=== PATIENT | male | born 1990 | race Asian ===

== ENCOUNTER 2024-02-18 02:03 | Inpatient (IN) | payer MEDICAID, OTHER ==
[~2024-02-18] VITALS: Ht 170.2 cm; Wt 72.1 kg
[2024-02-18 04:53] LABS: BASOPHILS % (AUTO) 1.5 % (0.0-2.0); EOSINOPHILS % (AUTO) 1.7 % (1.0-6.0); HEMATOCRIT 49.5 % (41-53); HEMOGLOBIN 16.4 g/dL (13.5-17.5); LYMPHOCYTES # (AUTO) 2.4 K/uL (1.0-4.8); MEAN CORPUSCULAR HEMOGLOBIN 29.5 pg (26.0-34.0); MEAN CORPUSCULAR HGB CONC 33.2 G/dL (31.0-37.0); MEAN CORPUSCULAR VOLUME 89 fL (80-100); MONOCYTES # (AUTO) 0.8 K/uL (0.1-1.0); NEUTROPHILS # (AUTO) 7.4 K/uL (1.8-7.7); NEUTROPHILS % (AUTO) 67.8 % (40.0-70.0); PLATELET COUNT (AUTO) 324 K/uL (150-450); RED BLOOD CELL COUNT(AUTO) 5.58 MIL/uL (4.50-5.90); RED CELL DISTRIBUTION WIDTH 13.8 % (11.5-14.5); WHITE BLOOD COUNT (AUTO) 10.9 K/uL (4.5-11.0)
[2024-02-18 05:08] LABS: ANION GAP 9 mmol/L (8-16); CARBON DIOXIDE 29 mmol/L (22-29); CHLORIDE 101 mmol/L (98-107); CREATININE 0.87 mg/dL (0.60-1.30); GLOMERULAR FILTR. RATE CALC > 60 mL/min (>60); GLUCOSE,RANDOM 93 mg/dL (70-110); POTASSIUM 3.8 mmol/L (3.5-5.1); SODIUM SERUM 139 mmol/L (136-145); UREA NITROGEN, BLOOD 16 mg/dL (7-18)
[2024-02-18 05:15] LABS: ALCOHOL, BLOOD (SERUM) < 3 mg/dL (0-10)
[2024-02-18 05:52] LABS: PH,URINE DRUG SCREEN 6.5 (5.0-8.0)
[2024-02-18 06:00] LABS: ALCOHOL, URINE DRUG SCREEN NEGATIVE (NEGATIVE); AMPHET/METH SCREEN,URINE POSITIVE (NEGATIVE); BARBITURATE SCREEN, URINE NEGATIVE (NEGATIVE); BENZODIAZEPINES SCREEN,URINE NEGATIVE (NEGATIVE); CANNABINOID SCREEN,URINE NEGATIVE (NEGATIVE); COCAINE SCREEN,URINE NEGATIVE (NEGATIVE); METHADONE SCREEN, URINE NEGATIVE (NEGATIVE); OPIATE SCREEN,URINE NEGATIVE (NEGATIVE); PHENCYCLIDINE SCREEN,URINE NEGATIVE (NEGATIVE)
[2024-02-18 07:53] LABS: COVID AG,FIA SOURCE NASAL SWAB
[2024-02-18 08:20] LABS: SARS-COV2 (COVID) ANTIGEN,FIA Negative (Negative)
[2024-02-18] MEDS ORDERED: ZOLPIDEM TARTRATE 10 MG TABLET PO PRN (09:30)
[2024-02-18] MEDS ORDERED: HALOPERIDOL 5 MG TABLET PO PRN (09:30)
[2024-02-18] MEDS ORDERED: LORazepam 2 MG TABLET PO PRN (09:30)
[2024-02-18 13:03] VITALS: BP 114/76; PULSE 100; RESP 18; TEMP 97.8; O2SAT 97
[2024-02-18] MEDS: RisperiDONE 1 MG TABLET PO SCH (18:06)
[2024-02-18] MEDS ORDERED: CloNIDine HCL 0.1 MG TABLET PO PRN (19:45)
[2024-02-18] MEDS ORDERED: LOPERAMIDE HCL 2 MG CAPSULE PO PRN (19:45)
[2024-02-18] MEDS ORDERED: BENZOCAINE/MENTHOL LOZENGE PO PRN (19:45)
[2024-02-18] MEDS ORDERED: BACITRACIN 28 GM OINTMENT TP PRN (19:45)
[2024-02-18] MEDS ORDERED: ACETAMINOPHEN 325 MG TABLET PO PRN (19:45)
[2024-02-18] MEDS ORDERED: OMEPRAZOLE 20 MG CAPSULE PO PRN (19:45)
[2024-02-18] MEDS ORDERED: MAGNESIUM HYDROXIDE SUSPENSION 30 ML UDCUP PO PRN (19:45)
[2024-02-18] MEDS ORDERED: DOCUSATE SODIUM 100 MG CAPSULE PO PRN (19:45)
[2024-02-18] MEDS ORDERED: MAG HYDROX/ALUMINUM HYD/SIMETH ES 30 ML SUSPENSION UDCUP PO PRN (19:45)
[2024-02-18] MEDS ORDERED: ONDANSETRON 4 MG TABLET PO PRN (19:45)
[2024-02-18] MEDS ORDERED: ALBUTEROL SULFATE HFA 90 MCG/PUFF 8 GM INHALER IH PRN (19:45)
[2024-02-18] MEDS ORDERED: IBUPROFEN 600 MG TABLET PO PRN (19:45)
[2024-02-18] MEDS ORDERED: PETROLATUM,WHITE 28 GM JELLY TP PRN (19:45)
[2024-02-18 20:40] VITALS: BP 110/66; PULSE 85; RESP 19; TEMP 98.3; O2SAT 97
[2024-02-19 11:06] VITALS: BP 132/76; PULSE 69; RESP 19; TEMP 98.6; O2SAT 100
[2024-02-19 21:11] VITALS: BP 121/71; PULSE 100; RESP 16; TEMP 98; O2SAT 98
[2024-02-20 09:12] VITALS: BP 123/79; PULSE 85; RESP 18; TEMP 98.8; O2SAT 100
[2024-02-20 21:07] VITALS: BP 115/71; PULSE 99; RESP 18; TEMP 98; O2SAT 97
[2024-02-21 08:17] VITALS: BP 112/77; PULSE 94; RESP 16; TEMP 98.1; O2SAT 100
[2024-02-21] MEDS ORDERED: RISP-31 PO (10:46)
== END 2024-02-21 12:00 | disposition home or self-care (01) | DRG 750 ==
LOC: EMS 02:05 → EDBEDREQSVC 09:03 → EDBEDREQ 09:15 → 3EI 13:14
PROVIDERS: ADMIT Psychiatry & Neurology Psychiatry; ATTEND Psychiatry & Neurology Psychiatry
DX: F20.9 Schizophrenia, unspecified (principal); F15.90 Other stimulant use, unspecified, uncomplicated; F32.A Depression, unspecified; Z20.822 Contact with and (suspected) exposure to COVID-19; F41.9 Anxiety disorder, unspecified; G47.00 Insomnia, unspecified; K59.00 Constipation, unspecified; Z87.891 Personal history of nicotine dependence
CPT/HCPCS: 80048; 80307; 85025; 99285; G0480